=== PATIENT | female | born 1945 | race Caucasian/White ===

== ENCOUNTER 2023-04-27 11:09 | Emergency (ER) | payer MEDICARE ==
[~2023-04-27] VITALS: Ht 180.3 cm; Wt 68.5 kg
[2023-04-27 12:03] VITALS: O2SAT 100
== END 2023-04-27 15:08 | disposition home or self-care (01) ==
LOC: ER 11:20
DX: S00.03XA Contusion of scalp, initial encounter (principal); W05.0XXA Fall from non-moving wheelchair, initial encounter; Y92.89 Other specified places as the place of occurrence of the external cause; G20.A1 Parkinson's disease without dyskinesia, without mention of fluctuations
CPT/HCPCS: 70450; 72125; 99284